=== PATIENT | male | born 1980 | race Hispanic/Latino ===

== ENCOUNTER 2025-06-14 00:28 | Emergency (ER) | payer OTHER, SELFPAY ==
[2025-06-14 00:38] VITALS: BP 163/98
[2025-06-14 00:50] VITALS: BMI 36.7
--- NOTE | 2025-06-14 01:58 | ED.GENMED ---
History of Present Illness
General
Chief Complaint: Crisis Evaluation
Source: patient
Exam Limitations: none
Time Seen by Provider: 06/14/25 00:36
Nursing documentation reviewed up to this point in time: agreed with
History of Present Illness
History of Present Illness:
45-year-old male with reported history of depression, distant history of substance use presents to the emergency room for evaluation of suicidal ideation and racing thoughts. Patient reports that over the past 24 to 48 hours he noticed that he has
developed, and racing thoughts. He says that he has been having occasional passive wish but denies feeling actively suicidal. He denies feeling homicidal. He reports that he has been generally depressed and anxious. He says that he had
similar symptoms leading up to significant suicidal ideation a few years ago requiring inpatient hospitalization at [facility] and so he decided to seek care today in the emergency department. He is on Zoloft and says he has had a stable dose
for years without any recent adjustments. He denies any recent drug or alcohol use.
Review of Systems
Review of Systems
All Other Systems: ROS reviewed and negative except as documented in HPI and ROS
Respiratory: Denies trouble breathing
Cardiac: Denies chest pain
ABD/GI: Denies abdominal pain
: Denies flank pain
Musculoskeletal: Denies neck pain or back pain
Neurological: Denies headache
Psychiatric: Reports depression, anxiety and suicidal (Passive wish); Denies hallucinations
Phy Exam
Physical Exam
Physical Exam:
General: Well appearing and non-toxic
HEENT: protecting airway
Neck: appears supple
CV: No evidence of cyanosis
Resp: No accessory muscle use
Abd: Non-distended
Extremities: No deformities
Neuro: Alert
Psych: Somewhat guarded affect, depressed mood, reasonable insight
Skin: Intact
Scores
Heart Failure Risk
Heart Failure Risk Score: Not Applicable
Heart Score for Chest Pain Patients
STEMI patient?: Not applicable
Withdrawal Assessment of Alcohol
Withdrawal Assessment Completed?: Not applicable
Course
Orders/Labs/Results
Orders:
Orders
06/14/25 00:45
Crisis Consult Routine
Reason for Consult: depression, racing thoughts
ED Special Safety Observation ONCE
Observation level: Intermittent Observation
06/14/25 00:56
Drug Screen, Urine [Urine Drug Abuse Screen] Urgent
Date Specimen was Collected: 06/14/25
Time Specimen was Collected: 00:55
06/14/25 01:33
Acetaminophen Urgent
Alcohol Urgent
Complete Blood Count/With Diff Urgent
Comprehensive Metabolic Panel Urgent
Salicylate Urgent
Abnormal Lab Results
06/14/25
00:56
Ur Tricyclics Screen Positive H
(Negative)
Vital Signs
Initial and Last Documented VS:
Initial Vital Signs
Temp Pulse Resp BP Pulse Ox
37.0 C 90 12 163/98 100
06/14/25 00:38 06/14/25 00:38 06/14/25 00:38 06/14/25 00:38 06/14/25 00:38
Last Documented Vital Signs
Temp Pulse Resp BP Pulse Ox
37.0 C 90 12 163/98 100
06/14/25 00:38 06/14/25 00:38 06/14/25 00:38 06/14/25 00:38 06/14/25 00:38
MDM/Problems Addressed
Differential Diagnosis Includes:
Depression, substance use
MDM/Problems Addressed:
45-year-old male presents with depressed mood, racing thoughts and passive wish recently similar symptoms he was having before serious suicidality requiring inpatient stay in [facility]. Denies active suicidality or plan at this point.
Case was discussed with crisis and patient requesting voluntary inpatient placement for psychiatric treatment. Will monitor pending placement. Basic screening studies sent off to facilitate placement.
*Pulse Oximetry
SaO2: 100
Oxygen Mode of Delivery: Room air
Patient hypoxic: no (100%)
*Critical Care Note
Total Time (30-74mins, 75-104mins- exclusive of procedures): Not Applicable
Data Reviewed
Source: patient
Patient Management
Discussion with other providers: Other (Discussed with crisis staff)
ED Attending Note
-
Portions of this chart may have been created with voice recognition software.� Occasional wrong word or��sound alike� substitutions may have occurred due to the inherent limitations of voice recognition software.
Discharge Plan
Departure
Patient Disposition: Psych Facility
Date of Disposition: 06/14/25
Time of Disposition: 01:32
Discharge Problem:
Suicidal ideation, Racing thoughts
Interventions
Interventions:
*Risk Screen - Suicide Last Done: 06/14/25 00:38
*General Assessment Last Done: 06/14/25 00:38
*Neglect/Abuse Screening Last Done: 06/14/25 00:38
*ED- Fall Risk Assessment Last Done: 06/14/25 00:38
*ED COVID-19 Vaccine History Last Done: 06/14/25 00:38
ED-Psychological Assessment Last Done: 06/14/25 00:38
Discharge Date and Time
Print Language: CHINESE
[2025-06-14 03:11] LABS: Hematocrit 39.9 % (39.0-52.0); Hemoglobin 14.1 g/dL (13.0-18.0); Mean Corp Hgb Conc. 35.3 g/dL (33.0-37.0); Mean Corpuscular Volume 83.3 fL (80.0-94.0); Nucleated Red Blood Cells % 0 % (-); Platelet Count 373 10^3/uL (130-400); Red Cell Dist. Width 12.5 % (11.5-14.5)
[2025-06-14 03:37] LABS: ALT (SGPT) 41 U/L (0-50); AST (SGOT) 42 U/L (17-59); Acetaminophen < 10 ug/ml (10-30); Albumin 4.8 g/dl (3.5-5.0); Alkaline Phosphatase 59 U/L (38-126); Blood Urea Nitrogen 24 mg/dl (9-20); Calcium 10.1 mg/dl (8.4-10.2); Carbon Dioxide 25 mmol/L (22-30); Chloride 101 mmol/L (98-107); Estimated Creatinine Clearance > 125 ml/min; Glucose 155 mg/dl (70-99); Potassium 4.3 mmol/L (3.5-5.1); Salicylate < 1.0 mg/dl (2.0-20.0); Sodium 137 mmol/L (135-145); Total Protein 7.8 g/dl (6.3-8.2); eGFR > 60.00
[2025-06-14 08:07] VITALS: BP 136/81
[2025-06-14] MEDS: ATIVAN 1 MG PO (09:29)
[2025-06-14] MEDS: ZOLOFT 100 MG PO (09:29)
--- NOTE | 2025-06-14 10:17 | EDRN ---
this RN noticed that the pts Sp02 dipped to 55% on RA, this RN woke the pt up and asked him to take deep breaths and the pts Sp02 came up to 77%, this RN notified Dr. Doty and this RN placed the pt on 6L NC, the pts Sp02 came up to 99%, no s/s
of distress, will take the pt to CT per Dr. Sanchez orders
== END 2025-06-14 10:47 ==
LOC: EMR 00:28
PROVIDERS: EMERGENCY PHYSICIAN Emergency Medicine
DX: R45.851 Suicidal ideations (principal); F32.A Depression, unspecified
CPT/HCPCS: 99285; 80053; 80143; 80179; 80306; 82077; 85025